=== PATIENT | male | born 1975 | race Caucasian/White ===

== ENCOUNTER 2020-01-22 19:21 | Emergency (ER) | payer SELFPAY | END 2020-01-22 21:06 | disposition home or self-care (01) | LOC: EDH 19:21 → EEVIPCON 19:21 → EDH 21:06 | DX: H53.8 Other visual disturbances (principal); R19.7 Diarrhea, unspecified; R11.0 Nausea; J34.89 Other specified disorders of nose and nasal sinuses; H92.09 Otalgia, unspecified ear; F41.9 Anxiety disorder, unspecified; F32.9 Major depressive disorder, single episode, unspecified ==